=== PATIENT | male | born 1960 | race Caucasian/White ===

== ENCOUNTER → 2016-08-17 | Outpatient (CLI) | payer OTHER ==
[~2016-08-17] MED LIST: NORCO 10-325 T1 EACH PO; ZOFRAN 4 MG TAB4 MG PO
== END ==
LOC: US 12:42
DX: Q61.00 Congenital renal cyst, unspecified (principal); K76.0 Fatty (change of) liver, not elsewhere classified; N28.89 Other specified disorders of kidney and ureter

== ENCOUNTER → 2020-09-04 | Outpatient (CLI) | payer MEDICARE ==
[~2020-09-04] MED LIST changes: +AMLODIPINE BESY10 MG PO; +ATORVASTATIN CA10 MG PO; +GLUCOPHAGE 500500 MG PO; +VITAMIN D350 MC3 PO
== END ==
LOC: CT 12:30
DX: Z87.891 Personal history of nicotine dependence (principal); R91.1 Solitary pulmonary nodule
CPT/HCPCS: 71271

== ENCOUNTER 2020-10-13 08:39 | Observation (INO) | payer MEDICARE ==
[~2020-10-13] VITALS: Ht 175.3 cm; Wt 144.2 kg
[~2020-10-13 08:39] MED LIST changes: -AMLODIPINE BESY10 MG PO; -ATORVASTATIN CA10 MG PO; -GLUCOPHAGE 500500 MG PO; -VITAMIN D350 MC3 PO
[2020-10-13 09:41] LABS: HEMOGLOBIN 17.4 gm/dl (14.0-17.5); RED BLOOD COUNT 5.63 M/UL (4.20-5.50); WHITE BLOOD COUNT 14.5 K/UL (4.5-11.0)
[2020-10-13 10:07] LABS: BUN/CREATININE RATIO 11 (0-10)
[2020-10-13] MEDS ORDERED: ATORVASTATIN CA10 MG PO (17:58)
[2020-10-13] MEDS ORDERED: AMLODIPINE BESY10 MG PO (17:58)
[2020-10-13] MEDS ORDERED: GLUCOPHAGE 500500 MG PO (17:59)
[2020-10-13] MEDS ORDERED: VITAMIN D350 MC3 PO (18:00)
[2020-10-14 04:45] LABS: RED BLOOD COUNT 5.18 M/UL (4.20-5.50); WHITE BLOOD COUNT 14.6 K/UL (4.5-11.0)
[2020-10-14 05:19] LABS: BUN/CREATININE RATIO 14 (0-10)
== END 2020-10-14 12:19 | disposition home or self-care (01) ==
LOC: ER1 08:39 → CDU 12:33 → MED SURG 4 16:40
PROVIDERS: Physician Assistant; ADMIT Surgery
DX: K43.6 Other and unspecified ventral hernia with obstruction, without gangrene (principal); E11.9 Type 2 diabetes mellitus without complications; I10 Essential (primary) hypertension; E66.01 Morbid (severe) obesity due to excess calories; E78.5 Hyperlipidemia, unspecified; Z85.46 Personal history of malignant neoplasm of prostate; Z87.891 Personal history of nicotine dependence; Z79.84 Long term (current) use of oral hypoglycemic drugs; Z79.899 Other long term (current) drug therapy; Z20.822 Contact with and (suspected) exposure to COVID-19
CPT/HCPCS: 36415; 80048; 80053; 81001; 83605; 83690; 85025; 96374; 96375; 99285; C1781; G0378; J0690; J2001; J2270; J2405; J2704; J2710; J3010; J7030; J7120; Q9967; U0002

== ENCOUNTER → 2022-01-01 | Outpatient (CLI) | payer MEDICARE ==
[~2022-01-01] MED LIST changes: +AMLODIPINE BESY10 MG PO; +ATORVASTATIN CA10 MG PO; +GLUCOPHAGE 500500 MG PO; +VITAMIN D350 MC3 PO
== END ==
LOC: KOH-I 13:15
DX: Z87.891 Personal history of nicotine dependence (principal); R91.1 Solitary pulmonary nodule
CPT/HCPCS: 71271